=== PATIENT | female | born 1975 | race Caucasian/White ===

== ENCOUNTER 2019-02-23 21:51 | Emergency (ER) | payer OTHER ==
[2019-02-23 22:03] VITALS: BP 150/98; PULSE 92; TEMP 98.2; BMI 27.8
--- NOTE | 2019-02-23 22:14 | PDOC ---
History of Present Illness - General Chief Complaint: Weakness Stated Complaint: WEAKNESS Time Seen by Provider: 02/23/19 22:14 History Source: Patient - History of Present Illness Initial Comments: 02/23/19 22:53 43 year old female with history of hypothyrodisim c/o feeling tired and weak. reports that she has been off her thyroid medication for 1 week. patient reports that she moved here from [place] denies chest pain, Nausea/ vomiting. PMHX: hypothyroid on synthroid 100mcg once daily. Past History - Past Medical History Allergies/Adverse Reactions: Allergies Allergy/AdvReac Type Severity Reaction Status Date / Time No Known Allergies Allergy Verified 02/23/19 22:05 Home Medications: Ambulatory Orders Levothyroxine [Synthroid -] 25 mcg PO DAILY #30 tablet 02/24/19 COPD: No Thyroid Disease: Yes (Hypothyroid) - Suicide/Smoking/Psychosocial Hx Smoking History: Unknown if ever smoked Have you smoked in the past 12 months: No Information on smoking cessation initiated: No Hx Alcohol Use: No Drug/Substance Use Hx: No Review of Systems - Review of Systems Able to Perform ROS?: Yes Is the patient limited Kiswahili proficient: No Constitutional: No: Symptoms Reported, See HPI, Chills, Diaphoresis, Fever, Loss of Appetite, Malaise, Night Sweats, Weakness, Weight Stable, Unintentional Wgt. Loss, Unexplained wgt Loss, Other *Physical Exam - Vital Signs Last Vital Signs Temp Pulse Resp BP Pulse Ox 98.2 F 92 H 16 150/98 100 02/23/19 22:01 02/23/19 22:01 02/23/19 22:01 02/23/19 22:01 02/23/19 22:01 - Physical Exam General Appearance: Yes: Appropriately Dressed Respiratory/Chest: positive: Lungs Clear, Normal Breath Sounds Cardiovascular: positive: Regular Rhythm, Regular Rate Gastrointestinal/Abdominal: positive: Normal Bowel Sounds, Soft. negative: Tender Extremity: positive: Normal Capillary Refill, Normal Inspection, Normal Range of Motion Integumentary: positive: Normal Color, Dry, Warm Neurologic: positive: transport specialist II-XII NML intact, Fully Oriented, Alert, Normal Mood/ Affect, Normal Response, Motor Strength 5/5 ED Treatment Course - LABORATORY CBC & Chemistry Diagram: 02/23/19 23:03 02/23/19 23:03 Medical Decision Making - Medical Decision Making 02/24/19 04:14 A: hypothyroidism P: labs tsh: grossly elevated. Synthroid prescription patient has an appointment held in [facility] clinic patient to follow up for continued management., *DC/Admit/Observation/Transfer Diagnosis at time of Disposition: Hypothyroidism Qualifiers: Hypothyroidism type: unspecified Qualified Code(s): E03.9 - Hypothyroidism, unspecified - Discharge Dispostion Disposition: HOME Condition at time of disposition: Fair - Prescriptions Prescriptions: Levothyroxine [Synthroid -] 25 mcg PO DAILY #30 tablet - Referrals - Patient Instructions Printed Discharge Instructions: Hypothyroidism Additional Instructions: take synthroid as prescribed. please follow up in the clinic. they will contact for an appointment. if no appointment scheduled by staff by tomorrow , please call for one. Additional Instructions: * Please call your personal physician to report your Emergency Department visit and to report your progress, if any. * If there is no improvement in symptoms in 2 days call your physician. * Return to the Emergency Department for any worsening symptoms. - Post Discharge Activity
--- NOTE | 2019-02-23 22:34 | PDOC ---
*Physical Exam - Vital Signs Last Vital Signs Temp Pulse Resp BP Pulse Ox 98.2 F 92 H 16 150/98 100 02/23/19 22:01 02/23/19 22:01 02/23/19 22:01 02/23/19 22:01 02/23/19 22:01 ED Treatment Course - LABORATORY CBC & Chemistry Diagram: 02/23/19 23:03 02/23/19 23:03 Medical Decision Making - Medical Decision Making 02/23/19 22:34 Patient seen by the advanced practice provider under my direct supervision. Ancillary testing reviewed as necessary. I agree with plan as outlined by the advanced practice provider. *DC/Admit/Observation/Transfer Diagnosis at time of Disposition: Hypothyroidism - Referrals - Patient Instructions - Post Discharge Activity
[2019-02-23 23:20] LABS: BASO % 0.8 % (0-2.0); EOS % 5.5 % (0-4.5); HEMOGLOBIN 9.8 GM/dL (10.7-15.3); LYMPH % 33.1 % (8-40); MCH 23.6 pg (25.7-33.7); MCHC 32.7 g/dl (32.0-36.0); MEAN CELL VOLUME 72.3 fl (80-96); MEAN PLT VOLUME 7.3 fl (7.5-11.1); MONO % 5.5 % (3.8-10.2); NEUT % 55.1 % (42.8-82.8); PLATELET COUNT 384 K/MM3 (134-434); RBC 4.15 M/mm3 (3.60-5.2); RDW 19.9 % (11.6-15.6); WHITE BLOOD COUNT 7.4 K/mm3 (4.0-10.0)
[2019-02-24 00:15] LABS: ALBUMIN 3.7 g/dl (3.4-5.0); BILIRUBIN,TOTAL 0.2 mg/dL (0.2-1); BLOOD UREA NITROGEN 10.3 mg/dL (7-18); CALCIUM 8.7 mg/dL (8.5-10.1); POTASSIUM 3.7 mmol/L (3.5-5.1); TOT PROT 7.8 g/dl (6.4-8.2)
--- NOTE | 2019-02-24 10:19 | EKG ---
Test Reason : Blood Pressure : / mmHG Vent. Rate : 071 BPM Atrial Rate : 071 BPM P-R Int : 140 ms QRS Dur : 080 ms QT Int : 430 ms P-R-T Axes : 039 039 048 degrees QTc Int : 467 ms NORMAL SINUS RHYTHM NONSPECIFIC T WAVE ABNORMALITY PROLONGED QT ABNORMAL ECG NO PREVIOUS ECGS AVAILABLE Confirmed by SALUD DAY, VLADISLAV ([id number]) on 02/24/2019 10:19:16 AM Referred By: Confirmed By:VLADISLAV BRANNON MD
== END 2019-02-24 01:40 | disposition home or self-care (01) ==
LOC: JER 21:51
DX: E03.9 Hypothyroidism, unspecified (principal)
CPT/HCPCS: 36415; 80053; 84443; 85025; 93005; 93010; 99283-25

== ENCOUNTER 2019-09-20 21:38 | Emergency (ER) | payer OTHER ==
[2019-09-20 21:46] VITALS: BP 148/93; PULSE 95; TEMP 98.1; BMI 28.5
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
[2019-09-20] MEDS ORDERED: KETOROLAC TROMETHAMINE 30 MG/1 ML VIAL IM ONE (23:31)
[2019-09-20] MEDS ORDERED: KETOROLAC TROMETHAMINE 30 MG/1 ML VIAL ONE (23:35)
== END 2019-09-21 00:11 | disposition home or self-care (01) ==
LOC: JER 21:38 → JERFT 21:38 → JER 09-21 00:11
PROC: 3E0233Z Introduction of Anti-inflammatory into Muscle, Percutaneous Approach (ICD-10-PCS; principal; 2019-09-20)
DX: S16.1XXD Strain of muscle, fascia and tendon at neck level, subsequent encounter (principal); M54.5 Low back pain; V01.9 Pedestrian injured in collision with pedal cycle, unspecified whether traffic or nontraffic accident; Y92.410 Unspecified street and highway as the place of occurrence of the external cause; Y93.89 Activity, other specified; Y99.8 Other external cause status
CPT/HCPCS: 96372; 99284-25